=== PATIENT | female | born 2005 | race Two or more races ===

== ENCOUNTER 2024-01-04 18:52 | Emergency (ER) | payer OTHER ==
[2024-01-04 19:03] VITALS: O2SAT 100
--- NOTE | 2024-01-04 19:23 | ED Physician Documentation ---
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 She is otherwise healthy. Starting potentially 3 to 4 days ago she noticed problems with her vision. It is both blurry and she feels like things are jumping [id number]-kyw-[id number] in it. She also feels uncoordinated. 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 And then when she walks she feels like she is veering to the right. There is no associated headache. She is dizzy, but has difficulty describing it, "like my head is empty." No possibility of . No prescribed medications. 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 2019 - Past Surgical History Past Surgical History: No - Present Medications Home Medications: Ambulatory Orders Medication Instructions Recorded Confirmed No Known Home Medications 01/04/24 01/04/24 - Allergies Allergies/Adverse Reactions: Allergies Allergy/AdvReac Type Severity Reaction Status Date / Time bee venom protein (honey bee) Allergy Edema Verified 01/04/24 19:34 shellfish derived Allergy Anaphylaxis Verified 01/04/24 19:34 - Social History Does the pt smoke?: No Smoking Status: Never smoker Does the pt drink ETOH?: No Does the pt have substance abuse?: No - Immunizations Immunizations are current?: Yes - POLST Patient has POLST: No PD ED PE NORMAL - Vitals Vital signs reviewed: Yes - General General: Alert and oriented X 3, No acute distress - HEENT HEENT: PERRL, EOMI, Other (No nystagmus, visual acuity 2019 bilaterally) - Neck Neck: Supple, no meningeal sign, No bony TTP - Cardiac Cardiac: RRR, No murmur - Respiratory Respiratory: No respiratory distress, Clear bilaterally - Abdomen Abdomen: Normal bowel sounds, Soft, Non tender - Back Back: No CVA TTP, No spinal TTP - Derm Derm: Normal color - Neuro Neuro: Alert and oriented X 3, drum attendant 2-12 intact, No motor deficit, No sensory deficit, Normal speech, Other (Normal zyswwp-ay-skqe and gknn-xf-arqh testing. Normal gait) Eye Opening: Spontaneous Motor: Obeys Commands Verbal: Oriented GCS Score: 15 - Psych Psych: Normal mood, Normal affect Results - Vitals Vitals: Vital Signs - 24 hr 01/04/24 01/04/24 18:57 20:15 Temperature 36.5 C Heart Rate 92 87 Respiratory 16 16 Rate Blood Pressure 140/90 H 130/81 H O2 Saturation 100 100 Oxygen O2 Source Room air - EKG (time done) 1924 EKG releavant findings:: EKG personally interpreted by author of this note. Relevant findings are: Rate: Rate (enter#) (91) Rhythm: NSR [place]: RAD Intervals: Normal [place] QRS: Normal Ischemia: Normal ST segments - Labs Labs: Laboratory Tests 01/04/24 01/04/24 01/04/24 19:28 19:28 19:47 WBC 10.4 RBC 4.74 Hgb 14.4 Hct 43.5 MCV 91.8 MCH 30.4 MCHC 33.1 RDW 11.6 L Plt Count 210 MPV 10.1 Neut # (Auto) 6.6 Lymph # (Auto) 2.7 [place] # (Auto) 0.8 Eos # (Auto) 0.2 Baso # (Auto) 0.0 Absolute Nucleated RBC 0.00 Nucleated RBC % 0.0 Sodium 140 Potassium 4.0 Chloride 106 Carbon Dioxide 27 Anion Gap 7.0 BUN 17 Creatinine 0.7 Estimated GFR (MDRD) 108 Glucose 77 Calcium 9.9 Total Bilirubin 0.7 AST 13 ALT 10 Alkaline Phosphatase 44 Total Protein 7.3 Albumin 4.6 Globulin 2.7 Albumin/Globulin Ratio 1.7 Urine Color YELLOW Urine Clarity CLEAR Urine pH 6.0 Ur Specific [place] >=1.030 H Urine Protein NEGATIVE Urine Glucose (UA) NEGATIVE Urine Ketones NEGATIVE Urine Occult Blood NEGATIVE Urine Nitrite NEGATIVE Urine Bilirubin NEGATIVE Urine Urobilinogen 0.2 (NORMAL) Ur Leukocyte Esterase NEGATIVE Ur Microscopic Review NOT INDICATED Urine Culture Comments NOT INDICATED Urine HCG, Qual NEGATIVE PD Medical Decision Making - ED course ED course: She presents with bilateral blurry vision although her visual acuity is normal associated with some clumsiness and depth perception issues. 1 would consider stroke or mass in the posterior part of the brain. Will start with CT imaging and labs. Low suspicion for primary eye problem. The problem is in both eyes and her vision is 20/20. Subsequently workup demonstrated normal CT and CT angiography of the head and neck. And normal labs including CBC, CMP, urinalysis and testing. I do believe she probably needs an MRI of her brain. We discussed either placing her observation or going home and she prefers to go home and come back in the morning for same as we do not operate the machine overnight. Departure - Departure Disposition: Home, Self Care Clinical Impression: Vision problem, Dysequilibrium Condition: Good Record reviewed to determine appropriate education?: Yes Instructions: ED Blurred Vision Comments: Thankfully, the testing so far is all normal which included lab work, CT and CT angiography of the head and neck. I do think you probably would benefit from an MRI of your brain and as discussed would recommend you return approximately 9 AM tomorrow and check in the ER for reevaluation and anticipated ordering of same. Return sooner if worse. Forms: PCP List, Activity restrictions
[2024-01-04 19:32] LABS: BASOPHILS % (AUTO) 0.3 %; EOSINOPHILS # (AUTO) 0.2 10^3/uL (0.0-0.7); EOSINOPHILS % (AUTO) 1.9 %; HCT - HEMATOCRIT 43.5 % (37.0-47.0); HGB - HEMOGLOBIN 14.4 g/dL (12.0-16.0); LYMPHOCYTES # (AUTO) 2.7 10^3/uL (1.5-3.5); LYMPHOCYTES % (AUTO) 25.5 %; MEAN CORPUSCULAR HEMOGLOBIN 30.4 pg (27.0-31.0); MEAN CORPUSCULAR HGB CONC 33.1 g/dL (32.0-36.0); MEAN CORPUSCULAR VOLUME 91.8 fL (81.0-99.0); MEAN PLATELET VOLUME 10.1 fL (7.9-10.8); MONOCYTES # (AUTO) 0.8 10^3/uL (0.0-1.0); MONOCYTES % (AUTO) 7.9 %; NEUTROPHILS # (AUTO) 6.6 10^3/uL (1.5-6.6); NEUTROPHILS % (AUTO) 63.9 %; PLT - PLATELET COUNT 210 10^3/uL (130-450); RED BLOOD COUNT 4.74 10^6/uL (4.20-5.40); RED CELL DISTRIBUTION WIDTH 11.6 % (12.0-15.0); WHITE BLOOD COUNT 10.4 x10^3/uL (4.8-10.8)
[2024-01-04] MEDS ORDERED: iohexoL-300 100 ML VIAL ONE (19:39)
[2024-01-04 19:48] LABS: ALBUMIN 4.6 g/dL (3.2-5.5); ALBUMIN/GLOBULIN RATIO 1.7 (1.0-2.2); BILIRUBIN,TOTAL 0.7 mg/dL (0.2-1.0); CALCIUM 9.9 mg/dL (8.5-10.3); CREATININE 0.7 mg/dL (0.6-1.3); TOTAL PROTEIN 7.3 g/dL (6.4-8.9)
[2024-01-04 19:54] LABS: BILIRUBIN,URINE NEGATIVE (NEGATIVE); GLUCOSE, URINE (UA) NEGATIVE (NEGATIVE); KETONES,URINE (UA) NEGATIVE (NEGATIVE); LEUKOCYTE ESTERASE, URINE NEGATIVE (NEGATIVE); NITRITE,URINE NEGATIVE (NEGATIVE); OCCULT BLOOD,URINE NEGATIVE (NEGATIVE); PROTEIN,URINE NEGATIVE (NEGATIVE); UROBILINOGEN,URINE 0.2 (NORMAL) E.U./dL (NORMAL)
[2024-01-04 19:56] LABS: CLARITY,URINE CLEAR (CLEAR); HCG UR QUAL NEGATIVE
--- NOTE | 2024-01-04 20:17 | CT Report ---
PROCEDURE: Head WO INDICATIONS: cva sx TECHNIQUE: Noncontrast 4.5 mm thick angled axial sections acquired from the foramen magnum to the vertex. For r adiation dose reduction, the following was used: automated exposure control, adjustment of mA and/or kV according to patient size. COMPARISON: None. FINDINGS: Image quality: Excellent. CSF spaces: Basal cisterns are patent. No extra-axial fluid collections. Ventricles are normal in size and shape. Brain: No midline shift. No intracranial masses or hemorrhage. [place]-white matter interface is norm al. Skull and face: Calvarium and visualized facial bones are intact, without suspicious lesions. Sinuses: Visualized sinuses and mastoids are clear. IMPRESSION: No acute intracranial pathology. Reviewed by: Hany Winter MD on 01/04/2024 8:16 PM PDT Approved by: Hany Winter MD on 01/04/2024 8:16 PM PDT Station ID: [id number]
--- NOTE | 2024-01-04 20:19 | CT Report ---
PROCEDURE: Angio Head/Neck INDICATIONS: cva sx TECHNIQUE: After the administration of intravenous contrast, 1 mm thick sections acquired from the aortic arch t hrough the [place] of [place]. 3-dimensional zekwpvu-txzaspfrh-degwwfzwlr (MIP) and/or volume renderin g reformats were acquired of the central intracranial vasculature and neck separately. For radiation dose reduction, the following was used: automated exposure control, adjustment of mA and/or kV acco rding to patient size. CONTRAST: 80ml [id number] COMPARISON: None. FINDINGS: Image quality: Diagnostic. HEAD CT: CSF Spaces: Basal cisterns are patent. No extra-axial fluid collections. Ventricles are normal in size and shape. Brain: No significant abnormality is seen for scanning technique. Skull and face: Calvarium and visualized facial bones appear intact, without suspicious lesions. Sinuses: Visualized sinuses and mastoids are clear. HEAD CT ANGIOGRAPHY: Anterior circulation: Intracranial internal carotid arteries are normal in size and flow. The flow within the paired anterior cerebral arteries is normal and symmetric. The flow within the middle cer ebral arteries is normal and symmetric. The anterior communicating artery is seen. No aneurysms are seen. Posterior circulation: Visualized portions of the vertebral arteries demonstrate normal caliber, and join to form a normal appearing basilar artery. Flow within the posterior cerebral arteries is norm al and symmetric. No aneurysms are seen. NECK CT ANGIOGRAPHY: Carotid system: The great vessels demonstrate a conventional anatomy as they arise from the aortic a rch. The origins of the common carotid arteries appear patent. The common carotid arteries demonstr ate normal caliber and courses. The bifurcation regions are both widely patent. The internal caroti d arteries demonstrate normal calibers and courses. Posterior circulation: The origins of the vertebral arteries both appear widely patent. The more lay perior extracranial portions of both vertebral arteries also demonstrate normal courses and calibers. They join to form a normal appearing basilar artery. Soft tissues: Visualized neck soft tissues demonstrate no suspicious abnormalities. Bones: No suspicious bony lesions. Visualized cervical spine appears normally aligned. IMPRESSION: No significant intracranial arterial abnormality is seen. No significant abnormality is seen within the arteries of the neck. The estimate of stenosis included in the report of the imaging study was calculated using the NASCET method Reviewed by: Hany Winter MD on 01/04/2024 8:17 PM PDT Approved by: Hany Winter MD on 01/04/2024 8:17 PM PDT Station ID: [id number]
[2024-01-04 20:51] VITALS: BP 120/73
[2024-01-04] MEDS: iohexoL-300 100 ML VIAL IVP ONE (21:17)
== END 2024-01-04 20:45 | disposition home or self-care (01) ==
LOC: ED 18:52
DX: R42 Dizziness and giddiness (principal); H53.9 Unspecified visual disturbance
CPT/HCPCS: 36415; 70450; 70496; 70498; 80053; 81003; 81025; 85025; 93005; 99284; Q9967; 81001; 87086